=== PATIENT | male | born 1965 | race Caucasian/White ===

== ENCOUNTER 2017-03-10 02:04 | Emergency (ER) | payer OTHER ==
[~2017-03-10] VITALS: Ht 175.3 cm; Wt 108.9 kg
[~2017-03-10 02:04] MED LIST: COZAAR100 M1 PO; LABETALOL HCL200 M1 PO
[2017-03-10 02:24] VITALS: BP 165/104
--- NOTE | 2017-03-10 02:45 | ED SKIN/ALLERGY COMPLAINT ---
History of Present Illness General Chief Complaint: Animal/Insect Bite Stated Complaint: TICK BITE PER PT Source: patient, old records Exam Limitations: no limitations Vital Signs & Intake/Output Vital Signs & Intake/Output Vital Signs Date Time Temp Pulse Resp B/P B/P Pulse O2 O2 Flow FiO2 Mean Ox Delivery Rate 03/10 0224 97.7 73 16 165/104 97 Room Air Room Air Allergies Coded Allergies: No Known Allergies (07/05/16) Reconcile Medications Labetalol HCl 200 MG TABLET 1 TAB PO HEART (Reported) Losartan (Cozaar) 100 MG TABLET 1 TAB PO DAILY HEART (Reported) Triage Note: 51YO MALE TO TRIAGE W/CO PAINFUL SKIN TAG UNDER R ARM. STATES ?TICK BITE. Triage Nurses Notes Reviewed? yes Onset: Evening Duration: day(s):, constant, continues in ED Timing: recent history Severity: mild, moderate Location: extremities Possible Factors: no cause identified Modifying Factors: Worsens With: scratching. Associated Symptoms: blisters, change in skin texture, rash HPI: Several hours prior to admission patient noted increased size of skin tag to right axilla considering possible tick bite. He denies fever chills nausea vomiting diarrhea abdominal pain chest pain shortness breath headache dysuria rash bleeding. Past History Travel History Traveled to [place] past 21 day No Medical History Any Pertinent Medical History? see below for history Cardiovascular: hypertension Surgical History Surgical History: non-contributory Psychosocial History What is your primary language Panamanian Tobacco Use: Never used Family History Hx Contributory? No Review of Systems Review of Systems Constitutional: Reports: no symptoms. EENTM: Reports: no symptoms. Respiratory: Reports: no symptoms. Cardiovascular: Reports: no symptoms. GI: Reports: no symptoms. Genitourinary: Reports: no symptoms. Musculoskeletal: Reports: no symptoms. Skin: Reports: see HPI, cysts, rash. Neurological/Psychological: Reports: no symptoms. Hematologic/Endocrine: Reports: no symptoms. Immunologic/Allergic: Reports: no symptoms. All Other Systems: Reviewed and Negative Physical Exam Physical Exam General Appearance: well developed/nourished, alert, awake, anxious, mild distress Head: atraumatic, normal appearance Eyes: Bilateral: PERRL, EOMI. Ears, Nose, Throat: normal pharynx, normal ENT inspection, hearing grossly normal Neck: normal inspection, supple Respiratory: normal breath sounds Cardiovascular: regular rate/rhythm Peripheral Pulses: 4+ carotid (R), 4+ carotid (L) Gastrointestinal: normal bowel sounds, soft, non-tender, no organomegaly Back: normal inspection Extremities: normal inspection, normal capillary refill, normal range of motion, no edema Neurologic/Psych: awake, alert, oriented x 3, normal mood/affect Reflexes: 2+: bicep (R), bicep (L). Skin: intact, normal color Skin Problem Location: upper extremities, right axilla Skin Problem Character: 0.75 cm skin tag without evidence of tick or bite Lymphatic: no anterior cervical marissa Progress Differential Diagnosis: abscess/cellulitis, allergic reaction, contact dermatitis Plan of Care: surgery follow up Departure Departure Time of Disposition: 244 Disposition: HOME OR SELF CARE Condition: Stable Clinical Impression Primary Impression: Skin tag Referrals: ANTONIA VALDERRAMA,SUZAN De Jesus Call for surgical follow up Departure Forms: Customer Survey General Discharge Information
== END 2017-03-10 03:02 ==
LOC: ERH 02:04
DX: L91.8 Other hypertrophic disorders of the skin (principal)
CPT/HCPCS: 99281